=== PATIENT | male | born 1985 | race Caucasian/White ===

== ENCOUNTER 2022-05-14 14:48 | Emergency (ER) | payer OTHER ==
[~2022-05-14] VITALS: Ht 182 cm; Wt 200.0 kg
[2022-05-14] MEDS ORDERED: LIDOCAINE PF 2% 5 ML (XYLOCAINE) VIAL ONE ×2 (14:58→15:05)
--- NOTE | 2022-05-14 15:01 | ED EENT ---
History of Present Illness General Stated Complaint: WC FACIAL INJ History of Present Illness Date Seen by Provider: May 14, 2022 Time Seen by Provider: 14:53 Initial Comments 36-year-old male is here with complaints of left lip and facial laceration occurring today by way of face getting stuck in a glass grinder. Patient's tooth also chipped. Denies LOC, dizziness, nausea and vomiting, SOB, airway compromise. Patient is able to speak in clear sentences. Allergies and Home Medications Allergies Coded Allergies: Penicillins (Verified Allergy, Unknown, 05/14/22) Patient Home Medication List Home Medication List Reviewed: Yes Review of Systems Review of Systems Constitutional: no symptoms reported Eyes: No Symptoms Reported Ears: No Symptoms Reported Nose: no symptoms reported Mouth: pain, other (left upper lip laceration and facial lac, chipped tooth) Throat: no symptoms reported Respiratory: no symptoms reported Cardiovascular: no symptoms reported Gastrointestinal: no symptoms reported Musculoskeletal: no symptoms reported Skin: see HPI Neurological: No Symptoms Reported Hematologic/Lymphatic: No Symptoms Reported Immunological/Allergic: no symptoms reported Physical Exam Vital Signs Vital Signs - First Documented 05/14/22 15:02 Temp 35.7 Pulse 93 Resp 16 B/P (MAP) 157/91 (113) Pulse Ox 95 O2 Delivery Room Air Height, Weight, BMI Height: '" Weight: lbs. oz. kg; BMI Method: General Appearance: WD/WN, mild distress Eyes: bilateral eye normal inspection, bilateral eye PERRL, bilateral eye EOMI Nose: normal inspection Mouth/Throat: dental tenderness (left upper incisor tooth is chipped), other (injury, left side of upper lip and extending into tom border into face/ cheek, with laceration about 2.25inches long along tom border into left cheek. Same lac extends to upper lip , the ehole extend into the interior of the upper lip into the mouth and is completely through the mucosa and underlying tissue. Punctate foreign bidies seen) Neck: non-tender, full range of motion, supple, other (small abrasion of let side of neck about 0.5inches long) Neurologic/Psychiatric: alert, normal mood/affect, oriented x 3 Procedures/Interventions Wound Location: Face Other Wound Location left upper lip , tom border and interior mouth, also extending externally into left side of cheek Wound's Depth, Shape: flap, stellate, sub Q Wound Explored: foreign body removed Irrigated w/ Saline (ccs): 100 Anesthesia: 1% Lidocaine Volume Anesthetic (ccs): 10 Wound Debrided: extensive Suture: Chromic Suture Size: 5-0 Number of Sutures: 26 Layer Closure?: 2 Number Deep Layer Sutures: 1 Progress/Results/Core Measures Results/Orders My Orders Orders - MIRACLE ESPINAL MD Lidocaine 2% Pf 5 Ml (Xylocaine 2% Pf) (05/14/22 14:58) Lidocaine 1% Inj 20 Ml (Xylocaine 1% Inj (05/14/22 15:15) Lidocaine 2% Pf 5 Ml (Xylocaine 2% Pf) (05/14/22 15:15) Lidocaine 2% Pf 5 Ml (Xylocaine 2% Pf) (05/14/22 15:05) Lidocaine 2% Pf 5 Ml (Xylocaine 2% Pf) (05/14/22 15:45) Dipht,Pertuss(Acell),Tet Adult (Boostrix (05/14/22 16:45) Clindamycin Capsule (Cleocin Capsule) (05/14/22 16:45) Ibuprofen Tablet (Motrin Tablet) (05/14/22 16:45) Medications Given in ED Current Medications Medications Dose Ordered Sig/Esther Route Start Time Stop Time Status Last Admin Dose Admin Lidocaine HCl 5 ml ONCE ONCE INH 05/14/22 15:15 05/14/22 15:16 DC 05/14/22 15:35 5 ML Lidocaine HCl 5 ml ONCE ONCE INH 05/14/22 15:45 05/14/22 15:46 DC 05/14/22 15:38 5 ML Lidocaine HCl 20 ml ONCE ONCE INJ 05/14/22 15:15 05/14/22 15:16 DC 05/14/22 15:34 20 ML Vital Signs/I&O 05/14/22 15:02 Temp 35.7 Pulse 93 Resp 16 B/P (MAP) 157/91 (113) Pulse Ox 95 O2 Delivery Room Air Progress Progress Note : Progress Note 1. LEFT UPPER LIP AND LEFT CHEEK LACERATION INCLUDING VERMILION BORDER: - Copious irrigation of wound with over 100 ml of sterile water and q-tips to remove all debris particles, which took significant amount of time. Some are emb edded and cannot be removed. - Chromic absorbable sutures used, 5.0, with 9 deep interior interrupted sutures and overall 17 external interrupted sutures placed with good apposition. - Tdap STAT in ER - Ibuprofen 600mg once STAT in ER - Clindamycin prescription 600mg BID for 10 days with first tab STAT in ER - Percocet 4 tab prescribed for severe pain. - Ibuprofen 600mg Q6H prn pain and swelling - Advised to sleep with head elevated today - Expect facial swelling in morning - Ice application - Wound care instructions given. - Only absorbable sutures placed, so no need for removal - Follow up with PCP in 10 days - Strongly advised to see Dentist for chipped tooth. -The patient was seen in the ED, and treated appropriately to presentation at a specific point in time. Patient is informed that there is a possibility that disease and illness can evolve and change in acuity rapidly or slowly after patient is discharged from the ER. Precautionary advice given to the patient for immediate return to ER if symptoms worsen or do not resolve, and to seek emergency care sooner rather than later. Pt also advised on the importance of PCP follow up and compliance with management and follow up plan with PCP and/or specialist, as this is part of the management plan. Pt verbally expressed understanding. Departure Impression Primary Impression: Laceration of upper lip with complication Qualified Codes: S01.511A - Laceration without foreign body of lip, initial encounter Additional Impressions: Laceration of left cheek with foreign body Qualified Codes: S01.422A - Laceration with foreign body of left cheek and temporomandibular area, initial encounter Laceration of vermilion border of upper lip Qualified Codes: S01.511A - Laceration without foreign body of lip, initial encounter Laceration of mouth, internal Qualified Codes: S01.512A - Laceration without foreign body of oral cavity, initial encounter Disposition: 01 HOME, SELF-CARE Condition: Improved Departure-Patient Inst. Patient Instructions: Wound Care (DC), Laceration Repair, Laceration Repair With Stitches ED, Laceration Repair With Stitches (DC) Add. Discharge Instructions: - Clindamycin prescription 600mg BID for 10 days with first tab STAT in ER - Percocet 4 tab prescribed for severe pain. - Ibuprofen 600mg Q6H prn pain and swelling - Advised to sleep with head elevated today - Expect facial swelling in morning - Ice application - Wound care instructions given. - Only absorbable sutures placed, so no need for removal - Follow up with PCP in 10 days - Strongly advised to see Dentist for chipped tooth. Scripts Oxycodone HCl/Acetaminophen (Percocet 5-325 mg Tablet) 1 Each Tablet 1 TAB PO Q6H for PAIN-MODERATE MDD 6 TABS for 3 Days, #4 TAB Prov: MIRACLE ESPINAL MD 05/14/22 Clindamycin HCl (Clindamycin HCl) 300 Mg Capsule 600 MG PO BID for 10 Days, #20 CAP Prov: MIRACLE ESPINAL MD 05/14/22 Work/School Note: Work Release Form Date Seen in the Emergency Department: May 14, 2022 Return to Work: May 17, 2022 Restrictions: Need Release from Doctor MIRACLE ESPINAL MD May 14, 2022 15:01
[2022-05-14 15:02] VITALS: BP 157/91
[2022-05-14] MEDS ORDERED: LIDOCAINE 1% INJ 20 ML VIAL INJ ONE (15:15)
[2022-05-14] MEDS ORDERED: LIDOCAINE PF 2% 5 ML (XYLOCAINE) VIAL INH ONE ×2 (15:15→15:45)
[2022-05-14] MEDS ORDERED: IBUPROFEN 600 MG (MOTRIN) TAB PO ONE (16:45)
[2022-05-14] MEDS ORDERED: TETANUS,DIPTH,PERTUSS P/F (BOOSTRIX) 0.5 ML VIAL IM ONE (16:45)
[2022-05-14] MEDS ORDERED: CLINDAMYCIN 150 MG (CLEOCIN) CAP PO ONE (16:45)
[2022-05-14] MEDS ORDERED: CLIN-144 PO (17:14)
[2022-05-14] MEDS ORDERED: OXYC1TAB87 PO (17:14)
== END 2022-05-14 17:25 | disposition home or self-care (01) ==
LOC: ER FS 14:51
DX: S01.511A Laceration without foreign body of lip, initial encounter (principal); S01.422A Laceration with foreign body of left cheek and temporomandibular area, initial encounter; Z28.310 Unvaccinated for COVID-19; W22.8XXA Striking against or struck by other objects, initial encounter
CPT/HCPCS: 12013; 90471; 90715